=== PATIENT | male | born 1985 | race Caucasian/White ===

== ENCOUNTER → 2022-07-18 | Outpatient (CLI) | payer OTHER ==
--- NOTE | 2022-07-18 15:54 | XRAY Report ---
PROCEDURE: Wrist 3 View RT INDICATIONS: R WRIST PX TECHNIQUE: 3 views of the wrist were acquired. COMPARISON: None FINDINGS: Bones: No fractures or dislocations. No suspicious bony lesions. Soft tissues: No suspicious soft tissue calcifications. IMPRESSION: Normal right wrist Reviewed by: Colten Yoon on 07/18/2022 3:53 PM PDT Approved by: Colten Yoon on 07/18/2022 3:53 PM PDT Station ID: [id number]
== END ==
LOC: DI.N 07:00
PROVIDERS: ATTEND Physician Assistant
DX: M25.531 Pain in right wrist (principal)